=== PATIENT | female | born 1950 | race Caucasian/White ===

== ENCOUNTER 2024-07-09 04:52 | Inpatient (IN) | payer MEDICARE, OTHER, SELFPAY ==
[2024-07-04 12:12] VITALS: BMI 29.7
[2024-07-04 13:08] LABS: Urine Albumin Negative (Neg - Trace); Urine Bilirubin Negative (Negative); Urine Character Clear (Clear); Urine Color Yellow; Urine Glucose Negative (Negative); Urine Ketone Trace (Negative); Urine Leukocyte Negative (Negative); Urine Nitrite Negative (Negative); Urine Occult Blood Negative (Negative); Urine Specific Gravity 1.015 (<1.030); Urine Urobilinogen Negative (Neg - 1+)
[2024-07-04 13:12] LABS: % Basophils 0.6 % (0-2); % Eosinophils 3.1 % (0-6); % Immature Granulocytes 0.3 % (0-0.5); % Lymphocytes 33.9 % (20.5-51.1); % Monocytes 7.8 % (1.7-9.3); % Neutrophils 54.3 % (42.2-75.2); Absolute Eosinophils 0.1 10^3/uL (0-0.7); Absolute Lymphocytes 1.2 10^3/uL (1.2-3.4); Absolute Monocytes 0.3 10^3/uL (0.1-0.6); Hematocrit 34.3 % (37.0-47.0); Mean Corpuscular Hgb 32.4 pg (27.0-31.0); Mean Corpuscular Volume 92.7 fL (81.0-99.0); Nucleated Red Blood Cells % 0 %; Platelet Count 267 10^3/uL (130-400); Red Cell Dist. Width 13.4 % (11.5-14.5); White Blood Cell Count 3.6 10^3/uL (4.8-10.8)
[2024-07-04 13:16] LABS: INR 0.98; PT 13.3 Sec (11.4-14.6)
[2024-07-04 13:17] LABS: APTT 28.1 Sec (23.4-35.0)
[2024-07-04 13:51] LABS: ALT (SGPT) 29 U/L (0-35); AST (SGOT) 25 U/L (14-36); Albumin 4.7 g/dl (3.5-5.0); Alkaline Phosphatase 58 U/L (38-126); Blood Urea Nitrogen 20 mg/dl (7-17); Calcium 9.9 mg/dl (8.4-10.2); Carbon Dioxide 27 mmol/L (22-30); Chloride 98 mmol/L (98-107); Estimated Creatinine Clearance 65 ml/min; Glucose 152 mg/dl (70-99); Potassium 4.7 mmol/L (3.5-5.1); Sodium 137 mmol/L (135-145); Total Bilirubin 0.5 mg/dl (0.2-1.3); Total Protein 7.1 g/dl (6.3-8.2); eGFR > 60.00
[2024-07-04 14:31] LABS: Glycohemoglobin (HgbA1c) 7.2 % (4.0-5.6)
--- NOTE | 2024-07-04 15:59 | CM ---
Met sharad Vallejo and Mrs. Connolly in [facility] She states prior to admission she resides with her spouse in a two story home with one step to enter. She states she has a full flight of steps to get to bedroom/ full bathroom. She state s she has a powder
room on the first floor. She states she has a powder room on the first floor. She states prior to admission she was independent with ambulation and adls. She states she does not have any DME in the home. She states she has a prescription plan.
The discharge plan is to return home with his spouse and VNA services when medically stable.
We reviewed pre-op and post-op routines. We reviewed the shower instructions. She has the soap, written instructions and the Cardiothoracic Surgery Educational Booklet. We also reviewed restrictions including driving and sternal precautions. We
also reviewed a home visit by the Transitional Care Nurse. She is agreeable to a home visit. Will need to see if she is in their catchment area for the Transitional Care Nurse. If out of the area will set-up VNA Services. The plan is for Robotic
MID-CAB verses Sternotomy CABG on Sunday07/09/24.
[2024-07-09] VITALS (15 sets, daily range): BP systolic 101–137; BP diastolic 59–88; BMI 28.8
[2024-07-09] MEDS: LOPRESSOR 25 MG PO (05:35)
[2024-07-09] MEDS: PROTONIX 40 MG PO (05:36)
[2024-07-09] MEDS: MAGNESIUM OXIDE 500 MG PO (05:36)
[2024-07-09] MEDS: BACTROBAN 2% OINTMENT 1 APPLIC NASAL ×2 (05:36→20:12)
--- NOTE | 2024-07-09 06:14 | W.CVOR.SURPR ---
CVOR Surgeon Immed Pre Op
-
I have examined this patient prior to performance of the scheduled procedure.
The patient's condition is unchanged from the time of the dictated/written History and
Physical and the patient is able to undergo the scheduled procedure.
Robotic assisted MIDCAB ZAMBRANO-LAD
[2024-07-09 07:35] LABS: Urine Albumin Negative (Neg - Trace); Urine Bilirubin Negative (Negative); Urine Character Clear (Clear); Urine Color Yellow; Urine Glucose Negative (Negative); Urine Ketone Negative (Negative); Urine Leukocyte Negative (Negative); Urine Nitrite Negative (Negative); Urine Occult Blood Negative (Negative); Urine Urobilinogen Negative (Neg - 1+)
[2024-07-09 07:40] LABS: ACT+ - POC 101 Seconds (82-134)
[2024-07-09 09:39] LABS: ACT+ - POC 428 Seconds (82-134)
--- NOTE | 2024-07-09 10:29 | W.PN.CT.SURG ---
CT Surgery Operative Note
-
CARDIAC SURGERY OPERATIVE REPORT
Preoperative Diagnosis: Coronary Artery Disease with proximal LAD involvement and chest pain
Postoperative Diagnosis: Same
Procedure(s) Performed:
1. Robotic assisted MIDCAB (single-vessel bypass ZAMBRANO in situ to LAD)
2. Robotic assisted harvest of internal mammary artery with anterolateral mini thoracotomy for CABG
3. Transesophageal echocardiography
4. Transonic Flowprobe assessment of ZAMBRANO graft
Date of Surgery: 04/08/2025
Comorbidities:
1. Coronary artery disease involving the proximal LAD
2. Intolerant of Plavix, significant epistaxis
3. Hypertension
4. Hyperlipidemia
5. Diabetes mellitus
6. Neuropathy
7. Cervical cancer status post total abdominal hysterectomy
8. Left breast cancer status post reconstruction with right TRAM flap
9. Cataracts
10. History of [place]
11. Ischemic cardiomyopathy with LVEF of 45% and regional wall motion abnormality
Attending Surgeon: Kris Cabrera MD, MS
Assistants: Collin Osuna PA-C & Marce Carter PA-C (present and necessary to first press operator, exchanging robotic instruments, retraction, suction, exposure, suture management, and wound closure under my direction)
Anesthesiology: David Peña MD and Chuy Ansari CRNA
Scrub and Circulating RNs: Yohana Webber RN, Mary Heredia RN
Peoplesoft Programmer: Corey Schaffer CCP
Anesthesia: GETA
EBL: per perfusion records, 150cc
Products: None
Indication(s) for Procedures: This is a 74-year-old female who is having exertional angina with high-grade stenosis of the proximal mid LAD. She was on Plavix at 1 point and had significant hemoptysis requiring multiple units of PRBCs. Given this,
she was referred to me for consideration of bypass grafting given her intolerant of DAPT. Complicating factor included a TRAM flap which ultimately turned out to be a right TRAM flap relocated to the left breast allowing for use of the ZAMBRANO. The
STS risk was discussed with the patient in the office and the shared decision making was to pursue a single-vessel bypass using his mammary artery to his LAD via a mini invasive approach.
Conduit(s) Quality/Internal Diameter:
ZAMBRANO -excellent, partial pedicle, flow probe analysis, 30 cc/min, PI of 2.9
Target(s) Quality/Internal Diameter:
LAD -good, smaller size target was taken after the second large diagonal vessel in order to clear both tandem lesions
Findings: Her left ventricular ejection fraction preoperatively was mildly depressed at 45 to 50%, following surgery EF remained the same with no new significant regional wall motion abnormalities. There were no new regional wall motion
abnormalities at the conclusion of the case. The ZAMBRANO was harvested in a skeletonized fashion. The mammary graft was verified with Doppler probe to have excellent signals and flows on flow probe assessment.
Description of Procedure: The patient was taken to the operating room. Their identity and procedure to be performed were verified and they were positioned supine on the operating table. Induction via general anesthesia with endotracheal intubation
was performed and central venous access and arterial monitoring were inserted. A preoperative transesophageal echocardiogram was performed to assess cardiac function and valvular function. The patient was then prepped and draped from chin to feet in
a sterile fashion and positioned with left side bumped up and left arm down. A preoperative time-out was performed with all members of the team present. A Veress needle was used to enter the chest after stopping ventilation with the left lung
verified by anesthesia. We started with slow pressure insufflation which they tolerated. An 8 mm port was inserted in the fourth intercostal space laterally and a camera was inserted verifying no intrathoracic iatrogenic injuries. 2 additional
ports(8 mm and 8mm) were placed along the midaxillary line on either side of the camera port. Single 12 mm air seal port was used for the customer assistant to pass instruments and sutures. The robotic platform was then docked and targeted towards the
mammary. The mammary was harvested in a skeletonized fashion. A posterior pericardiotomy was created to facilitate drainage. Once sufficient length was obtained, an anterior pericardiotomy was created to identify the distal target. This was marked
with a marker robotically. The cardiac stabilizer arm was then inserted through one of the robotic ports under direct vision and aimed up towards the anterior chest wall. Full heparinization was given. 3 Hem-o-juan clips were used to occlude and
divide the mammary distally at its bifurcation, and a single 5-0 prolene suture was used to secure the mammary to the pericardium overlying the LAD target. The robot platform was then undocked and the patient and a left anterior thoracotomy was
created over the target vessel. Upon entering the thoracic cavity the mammary and LAD were visible. A soft tissue and thoracotomy retractor was placed to facilitate exposure and a pericardial well was created. The ACT was confirmed to be over 400.
The cardiac suction stabilizer was used to isolate the LAD target. The distal end of the mammary was prepped and beveled to size. We verified orientation and length of the BRODERICK and found brisk flow. A coronary arteriotomy was created and enlarged
with coronary bourgeois scissors. A 1.5mm shunt was inserted to facilitate exposure and continued [place] coronary perfusion. An eege-uw-yhdj anastomosis was created with a 7-0 prolene and secured with a micro core knot. Additional medium clip was
placed the distal end of the mammary. The bulldog on the mammary was removed which demonstrated excellent graft flow. The shunt was then remove and demonstrated excellent [place] flow. Appropriate hemostasis was confirmed. The mammary graft was
inspected and was free from kinking or twisting and flowprobe evaluation demonstrated good flow and PI. A test dose of protamine was administered and the patient was monitored for any adverse reaction before resuming protamine. A 19F asya drain
into the pericardium and through the posterior pericardiotomy into the left chest. A #2 Ethibond suture was used to approximate the rib space. Fascia was approximated with #1 vicryl suture. Local analgesia was administered to the surgical sites.
The subcutaneous, dermis and epidermis were closed in layers in a running fashion. The skin wound was cleansed and dressed.
All instrument, sponge, and needle counts were confirmed to be correct x 2 at the end of the operation. The patient was transferred to the cardiac intensive care unit extubated in critical but stable condition.
I, Dr. Kris Cabrera, was present, scrubbed for, and performed all critical elements of this procedure.
Kris Cabrera MD, MS
Cardiothoracic Surgeon
[facility]
This operative dictation was created using the [email or web address] dictation system. Please excuse any grammatical, typographical, or 'sound alike' errors
[2024-07-09 10:32] LABS: ACT+ - POC 96 Seconds (82-134)
--- NOTE | 2024-07-09 10:39 | CON.INTV ---
Consultation
Consultation Request
Date/Time Consultation Requested: 07/09/2024 - 1020
Date/Time Consultation Performed: 07/09/2024 - 1035
Requesting Provider: DEMETRICE Branch
Performing Provider: Dr. Garcia
Reason for Consultation: s/p MIDCAB
Medical History
-
Chief Complaint: Elective MIDCAB
History of Present Illness:
74-year-old female non-smoker with a past medical history of CVA, MS, hypertension, hyperlipidemia, DM type II, left-sided breast cancer s/p mastectomy with tram flap reconstruction, neuropathy, history of snoring, and history of cervical cancer s/p
RICK with reoccurrence s/p XRT who presents with elective MIDCAB. Patient known to cardiothoracic surgery with Dr. Cabrera, last office visit on 07/01/2024. She has a history of NSTEMI with left heart catheterization recently showing severe mid LAD
stenosis. She was recommended for cardiothoracic revascularization and the risks and benefits were discussed. She agreed to the procedure and today underwent robotic assisted MIDCAB. There were no complications and she was transferred to the
CVICU with a mediastinal chest tubes x 1. Of note, she was extubated in the OR.
When I saw the patient she was resting in no acute distress on a simple mask at 15 L/min saturating 98%, heart rate 83, BP via A-line: 122/45, BP via NIBP: 106/60. Mediastinal chest tube x [address] Currently on insulin at 4 units/hr and Cardene
drip at 2.5 mg/hr.
PMHx: History of MS, history of CVA, history of epistaxis, hypertension, hyperlipidemia, DM type II, history of left-sided breast cancer s/p mastectomy with tram flap reconstruction, neuropathy, history of snoring, cervical cancer s/p RICK with
reoccurrence s/p XRT, urinary frequency, cataracts
PSHx: RICK, left mastectomy, x 2
Past Medical History
Past Medical History: Other (Above as per HPI)
Past Surgical History: Other (Above as per HPI)
Social History
Tobacco: Non-smoker
Alcohol: None
Drug: None
Personal:
Living: With Family
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
Family History
Family History: CAD (Father: from heart attack), Cancer (Mother: Right-sided breast cancer; sibling: Skin cancer) and Other (Sibling: A-fib)
Allergies / Home Medications
Allergies
Allergy/AdvReac Type Severity Reaction Status Date / Time
adhesive Allergy sensitivity Verified 07/02/24 13:21
lidocaine Allergy tachycardia Verified 07/02/24 15:42
Home Medications
�Medication �Instructions �Recorded �Confirmed �Last Taken �Type
aspirin 325 mg tablet 325 mg PO HS 07/02/24 07/09/24 07/08/24 22:00 History
aspirin 81 mg capsule 81 mg PO DAILY 07/02/24 07/09/24 07/08/24 08:00 History
cholecalciferol (vitamin D3) 125 125 mcg PO DAILY 07/02/24 07/09/24 07/02/24 08:00 History
mcg (5,000 unit) tablet (Vitamin
D3)
lisinopril 5 mg tablet 5 mg PO DAILY 07/02/24 07/09/24 07/05/24 08:00 History
metoprolol succinate 25 mg 25 mg PO DAILY 07/02/24 07/09/24 07/05/24 08:00 History
tablet,extended release 24 hr
rosuvastatin 20 mg tablet 20 mg PO HS 07/02/24 07/09/24 07/05/24 08:00 History
vitamin B complex 1 cap PO DAILY 07/02/24 07/09/24 07/02/24 08:00 History
Review of Systems
-
Unable to Obtain full review of systems at this time due to: Acuity
Vitals / Labs / Diagnostic Testing
Vital Signs
Temp Pulse Resp Pulse Ox
98 F 102 16 100
07/09/24 05:42 07/09/24 05:42 07/09/24 05:42 07/09/24 05:42
Diagnostic Testing:
Physical Exam
-
HEENT: Normocephalic and Anicteric
Cardiovascular: S1/S2 and Peripheral Edema (negative)
Respiratory: Wheeze (negative), Rales (negative), Rhonchi (negative) and Non-Labored Respirations
GI: Soft, Non Distended, Non Tender and Normal Bowel Sounds
Neurology: Tremors (negative) and Other (Sedated)
Skin: Warm and Dry
General: Respiratory Distress (negative), Comfortable, Fever (negative) and Chills (negative)
Assessment
-
Assessment: 74-year-old female non-smoker with a past medical history of CVA, MS, hypertension, hyperlipidemia, DM type II, left-sided breast cancer s/p mastectomy with tram flap reconstruction, neuropathy, history of snoring, and history of
cervical cancer s/p RICK with reoccurrence s/p XRT who presents with elective MIDCAB. Patient known to cardiothoracic surgery with Dr. Cabrera, last office visit on 07/01/2024. She has a history of NSTEMI with left heart catheterization recently
showing severe mid LAD stenosis. She was recommended for cardiothoracic revascularization and the risks and benefits were discussed. She agreed to the procedure and today underwent robotic assisted MIDCAB. There were no complications and she was
transferred to the CVICU with a mediastinal chest tubes x 1. Of note, she was extubated in the OR.
Chronic conditions REGISTERED REPRESENTATIVE: History of MS, history of CVA, history of epistaxis, hypertension, hyperlipidemia, DM type II, history of left-sided breast cancer s/p mastectomy with tram flap reconstruction, neuropathy, history of snoring, cervical cancer
s/p RICK with reoccurrence s/p XRT, urinary frequency, cataracts
Impression:
#CAD with proximal LAD involvement and chest pain s/p robotic assisted MIDCAB (POD #0)
#Mild respiratory acidosis
#DM type II with neuropathy c/b mild hyperglycemia
#Acute anemia due to above
#History of epistaxis due to Plavix
#Hypertension
#Hyperlipidemia
#Cervical cancer s/p RICK with recurrence s/p XRT
#Ischemic cardiopathy with chronic HFmrEF
Plan:
Patient was extubated in the OR, currently on 15 L via simple mask and saturating 98% and breathing comfortably
Transition to nasal cannula and maintain SpO2 >90-94%
prn nebulized bronchodilators - not currently bronchospastic
Pressors/antihypertensive/inotropes/diuretics will be provided as needed
Maintain MAP>65
Replete electrolytes with K>4, Mg>2
Monitor chest tube output (mediastinal chest tube x 1)
Monitor hemoglobin
Monitor platelet count and coags
Transfuse blood products as needed to maintain Hb>7g/dL, plt>50k (given post-operative status)
CT surgery managing chest tubes
Monitor blood sugar to maintain euglycemia with goal BG 140-180
Insulin drip per protocol
Aspiration precautions
DVT prophylaxis
Early nutrition
Early mobilization
Critical care statement: A total of 41 minutes of critical care time was provided for this patient today. This includes management of ventilator, spontaneous breathing trial, arterial blood gases, pressors, of unstable vital signs, evaluation of the
patient at bedside, reviewing the patient's pertinent medical records including radiographs, microbiology, laboratory evaluations, and discussion with primary team and critical care nursing.
[2024-07-09 11:11] LABS: B.E. - POC 0.8 mmol/L; Glucose - POC 139 mg/dl (70-99); HCO3 - POC 26 mmol/L (21-28); Hematocrit - POC 27 % PCV (37-47); Hemodilution- POC No; Hemoglobin Calculated - POC 9.3; Ionized Calcium - POC 1.24 mmol/L (1.15-1.33); O2 Saturation %Calculated-POC 99.9 % (94-98); PCO2 - POC 45 mmHg (35-48); PO2 - POC 311 mmHg (83-108); POC Comment BASELINE; Potassium - POC 3.2 mmol/L (3.5-5.1); Sodium - POC 139 mmol/L (136-145); Specimen Type - POC Arterial; pH - POC 7.37 (7.35-7.45)
[2024-07-09 11:11] LABS: B.E. - POC 0.1 mmol/L; Glucose - POC 204 mg/dl (70-99); HCO3 - POC 26 mmol/L (21-28); Hematocrit - POC 31 % PCV (37-47); Hemodilution- POC No; Hemoglobin Calculated - POC 10.5; Ionized Calcium - POC 1.23 mmol/L (1.15-1.33); O2 Saturation %Calculated-POC 98.8 % (94-98); PCO2 - POC 48 mmHg (35-48); PO2 - POC 134 mmHg (83-108); Potassium - POC 3.5 mmol/L (3.5-5.1); Sodium - POC 142 mmol/L (136-145); Specimen Type - POC Arterial; pH - POC 7.34 (7.35-7.45)
--- NOTE | 2024-07-09 11:20 | W.PN.UPDATE ---
Addendum entered and electronically signed by DEMETRICE Branch 07/09/24 15:32:
Patient with history of severe epistaxis with Plavix in the past. Will discontinue Plavix moving forward.
Original Note:
Update Note
Progress Note Update
74-year-old female with a non-STEMI event in April 2024 due to severe mid LAD disease. Patient was electively admitted on 03/09/2025 for mid CAB
IV: 1000
U.O.:� 500
Blood:� none
Wires:� none
Inotropes:� none
Pressors:� none
Sedatives:� none
�
NEURO: Extubated in the OR, sedated , pupils +2mm B/L
RESP: Lungs clear B/L. 2 mediastinal (40cc on arrival) chest tubes to -20cm suction. Sanguineous drainage
CV: RRR +S1, S2, no S3, no�rub, no murmur. Dermabond to left anterior minithoracotomy. RIJ intact. Left mastectomy s/p TRAM flap-skin pink w/o duskiness
ABD: round, soft, no BS
EXT: no edema, +2/4 DP pulses B/L, no femoral bruit, right radial A-line intact
: Iglesias with clear yellow urine
�
A/P: POD #0 s/p robotic assisted MIDCAB (ZAMBRANO to LAD)
# CAD
-Will require aspirin, Plavix, statin, and beta-stanislav
�
# acute surgical blood loss anemia-expected
- trend CBC
�
# Hx CVA 04/2024 with mild expressive aphasia
- neuro checks
�
# T2DM (A1C 7.2)
- insulin infusion x 48h
-Transition to moderate scale SSI when off insulin infusion
�
# HTN
- Cardene added to maintain SBP 90-130mmHg
- resume�lisinopril as BP permits
[2024-07-09 11:25] LABS: Glucose - Point of Care 167 mg/dl (70-99)
[2024-07-09 11:34] LABS: B.E. 0 mmol/L; HCO3 26.4 mmol/L (21-28); Ionized Calcium 1.23 mMOL/L (1.15-1.33); O2 Saturation % 97.1 % (94-98); PCO2 50 mmHg (32-35); PO2 113 mmHg (83-108); Potassium 3.1 mMOL/L (3.5-5.1); Sodium 139 mMOL/L (136-145); pH 7.33 (7.35-7.45)
[2024-07-09 11:36] LABS: Hematocrit 30.8 % (37.0-47.0); Hemoglobin 10.5 g/dL (12.0-16.0); Platelet Count 238 10^3/uL (130-400)
[2024-07-09 11:45] LABS: INR 1.25
--- NOTE | 2024-07-09 11:45 | PTCARENOTE ---
pt received from CVOR, drowsy. core temp 95.3F, bear hugger applied. SR on the monitor, HR 70-80s. no epicardial wires. per Dr. Cabrera goal SBP 90-130, Nitro gtt off per HEALTH INFORMATION MANAGEMENT DIRECTOR, started on Cardene gtt. palpable pulses. pt extubated in OR, 15L SM, 97-100%
POX. CTx1, no air leak or crepitus noted. pt abdomen s/n, denies n/v. Iglesias in place, clear yellow urine. 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 CT site c/d/i. R radial Abbie zeroed and calibrated. PIV. insulin
gtt running as ordered. lab work drawn, EKG performed, CXR completed. see worklist for VS, I&O, and assessment.
[2024-07-09] MEDS: NEURONTIN PO (11:46)
[2024-07-09] MEDS: ANCEF 10 IV ×2 (11:46)
[2024-07-09] MEDS: NSS 500 IV (11:47)
[2024-07-09] MEDS: KCL 50 IV ×2 (11:51→12:30)
[2024-07-09 11:56] LABS: Blood Urea Nitrogen 20 mg/dl (7-17); Estimated Creatinine Clearance 74 ml/min; Glucose 157 mg/dl (70-99)
[2024-07-09 12:51] LABS: Glucose - Point of Care 166 mg/dl (70-99)
[2024-07-09 14:16] LABS: Glucose - Point of Care 142 mg/dl (70-99)
[2024-07-09] MEDS: TYLENOL 1000 MG PO ×2 (14:55→23:20)
[2024-07-09 15:19] LABS: Glucose - Point of Care 122 mg/dl (70-99)
--- NOTE | 2024-07-09 15:43 | CM ---
pt in OR today, cm to follow.
[2024-07-09 16:14] LABS: Glucose - Point of Care 103 mg/dl (70-99)
[2024-07-09] MEDS: TORADOL 15 MG IV (16:31)
[2024-07-09] MEDS: ZOFRAN 4 MG IV (16:32)
[2024-07-09] MEDS: NEURONTIN 100 MG PO ×2 (16:32→23:20)
[2024-07-09] MEDS: PACERONE 200 MG PO ×2 (16:33→22:10)
--- NOTE | 2024-07-09 16:35 | PTCARENOTE ---
pt VSS, oriented x4, at bedside. PRN Toradol IVP given for pain. pt c/o mild nausea, received PRN Zofran. IS 1500ml. tolerating clears.
[2024-07-09] MEDS: LOW STRENGTH ASPIRIN 81 MG PO (17:07)
[2024-07-09] MEDS: ANCEF 5 IV (17:07)
--- NOTE | 2024-07-09 17:18 | W.PN.CD ---
Addendum entered and electronically signed by Latrell Lerner MD 07/09/24 17:41:
74 yo female with PMH of CAD, ICM EF 45% admitted following MIDCAB (ZAMBRANO-LAD). She is awake and extubated. Exam with RRR, no murmurs, no edema. Tele and EKG: sinus rhythm.
Add GDMT as BP allows post op. Continue ASA, statin.
Original Note:
Today's Communication / Plan
-
Follow telemetry
Postoperative care per CT surgery
Impression / Plan
-
IMPRESSION/PLAN: 74F with type 2 diabetes mellitus, hypertension, and dyslipidemia with type II PR in the setting of atheroembolic CVA presents for CABG
Primary lead atg developer: Dr. Bakari Moses
CAD s/p MIDCAB (single-vessel bypass ZAMBRANO in situ to LAD)
-EKG sinus rhythm with prolonged QT, EKG in a.m.
-Telemetry stable
-Extubated in OR
Type II PR (04/2024)
-She had epistaxis with DAPT on aspirin 325 mg at home, she saw ENT in the outpatient setting, she was cleared to resume clopidogrel with some risk
Ischemic cardiomyopathy (EF 45%)
-GDMT as tolerated in the postoperative setting
-Case management to flynn [id number]
-Follow daily weight, I/O
HLD
-Most recent LDL 60, fasting lipid panel in a.m.
-Ideally, LDL should be <55
Hypertension, follow postoperatively
Prior CVA
Type 2 diabetes mellitus, HgbA1c 11.6%, now improved to 7.2%
Prior left-sided breast cancer status post mastectomy and TRAM flap reconstruction
Cervical cancer s/p RICK, recurred XRT
Physical Exam
Vital Signs/Labs
Vital Signs
Temp Pulse Resp BP Pulse Ox
97.8 F 84 11 121/74 99
07/09/24 16:00 07/09/24 16:15 07/09/24 16:15 07/09/24 16:00 07/09/24 16:15
07/08/24 07/09/24 07/10/24
06:59 06:59 06:59
Actual Weight 69.1 kg
07/09/24 11:23
PT 16.0 Sec (11.4-14.6) H 07/09/24 11:23
INR 1.25 07/09/24 11:23
APTT 32.0 Sec (23.4-35.0) 07/09/24 11:23
Magnesium 2.0 mg/dl (1.6-2.3) 07/09/24 11:23
Physical Exam
Constitutional: No acute distress and Comfortable
EENT: Anicteric and Moist mucous membranes
Cardiovascular: Rhythm & rate is regular and S1S2 is normal
Respiratory: Respiratory effort normal and Lungs clear to auscul.
GI: Soft, Distention absent, Flat, Non tender and Normal bowel sounds
Neuro/Psych: AO x 3
Other: Skin (warm and dry)
Data Reviewed
-
Date of Service: July 09, 2024
[2024-07-09 18:21] LABS: Glucose - Point of Care 99 mg/dl (70-99)
[2024-07-09] MEDS: COMPAZINE 10 MG IV (19:58)
--- NOTE | 2024-07-09 20:00 | PTCARENOTE ---
assumed care of pt from previous RN. R IJ cordis w/ SLIC. R radial a-line. all lines leveled, zeroed, flushed. PIV intact. pt A&Ox4, resting in bed s/p mid CABG. SR on tele-monitor. POX 95% on RA. CTx1 (L lateral mediastinal) to -20cm wall suction,
draining sanguineous drainage. pt DTV @ 2330. all surgical sites stable, CDI. see worklist for complete nursing assessment, interventions, VS, and I&Os.
[2024-07-09 20:06] LABS: Glucose - Point of Care 110 mg/dl (70-99)
[2024-07-09] MEDS: DILAUDID 0.25 MG IV (20:12)
[2024-07-09] MEDS: SENOKOT-S PO (20:13)
[2024-07-09 21:23] LABS: Hematocrit 31.1 % (37.0-47.0); Hemoglobin 10.5 g/dL (12.0-16.0); Platelet Count 224 10^3/uL (130-400)
[2024-07-09 22:08] LABS: Glucose - Point of Care 86 mg/dl (70-99)
[2024-07-09] MEDS: CRESTOR 20 MG PO (22:10)
[2024-07-10] VITALS (17 sets, daily range): BP systolic 96–152; BP diastolic 58–81; PULSE 80; O2SAT 96–98; BMI 29.1
--- NOTE | 2024-07-10 | PTCARENOTE ---
assessment remains unchanged. VSS.
[2024-07-10 00:11] LABS: Glucose - Point of Care 98 mg/dl (70-99)
[2024-07-10 01:02] LABS: Glucose - Point of Care 97 mg/dl (70-99)
--- NOTE | 2024-07-10 02:05 | W.PN.CT ---
Today's Communication / Plan
-
-pod #1
-no issues overnight, A&O x4
-drips: Insulin only
-CT output: L med 95/215 in 12/24 hrs
-Kelsie was dcd yesterday. Pt was unable to use purewick, but got up to the commode overnight uneventfully (UO 300)
-continue insulin
-deline
-current meds (Asa, Amio, Lopressor, Crestor, Protonix). Intolerance of Plavix (hx epistaxis requiring transfusions)
-encourage IS, OOB
Assessment / Plan
-
- s/p Robotic assisted MIDCAB (single-vessel bypass ZAMBRANO in situ to LAD) by Dr. Cabrera on 07/09/24, pod #1
- Intraop ELAINE: LVEF preop was mildly depressed at 45 to 50%, following surgery EF remained the same with no new significant regional wall motion abnormalities.
- Coronary artery disease involving the proximal LAD
- Intolerant of Plavix, significant epistaxis requiring multiple units of PRBCs
- Hypertension
- Hyperlipidemia
- Diabetes mellitus
- Neuropathy
- Cervical cancer 2021- status post total abdominal hysterectomy & XRT
- Left breast cancer- status post mastectomy with reconstruction with right TRAM flap
- Cataracts
- History of [place] 04/2024
- Hx CVA 04/2024 (expressive aphasia- resolved)
- Ischemic cardiomyopathy with LVEF of 45% and regional wall motion abnormality
- Urinary frequency/incontinence
- Acute postop blood loss anemia- no active bleed
- Acute postop atelectasis
- Acute postop hypovolemia with subsequent hypervolemia
Discussed patient care with: Nursing and Care Team
Subjective
-
Date of Service: July 10, 2024
Objective Data
-
PT 16.0 Sec (11.4-14.6) H 07/09/24 11:23
INR 1.25 01/22/25 11:23
APTT 32.0 Sec (23.4-35.0) 07/09/24 11:23
Vital Signs
Vital Signs
Temp Pulse Resp BP Pulse Ox
98 F 82 10 112/66 98
07/09/24 20:00 07/10/24 01:00 07/10/24 01:00 07/10/24 01:00 07/10/24 01:00
CT Intake/Output/Weight
07/09/24 07/09/24 07/10/24
06:59 18:59 06:59
Intake Total 319.5 / 485.9 166.4 / 485.9
Output Total 680 / 740 60 / 740
Balance -360.5 / -254.1 106.4 / -254.1
SaO2: 98
Physical Exam
-
General: Awake and AOx3
Cardiovascular: Regular rate & rhythm, No Murmurs and No Rub
Respiratory: Decreased Breath Sounds
Sternum: Stable
Incision: Clean, Dry and Intact
Extremities: Edema +1 (DPs 1+ b/l)
Abdomen: soft, nondistended, nontender, +decreased bowel sounds
Data Reviewed
-
Lab Results: Results Reviewed
Medications: Active Meds Reviewed
Chest X-Ray: Report Reviewed and Image Reviewed
ECG: Report Reviewed and Image Reviewed
[2024-07-10 02:12] LABS: Glucose - Point of Care 89 mg/dl (70-99)
[2024-07-10] MEDS: ANCEF 5 IV ×2 (02:13→09:57)
[2024-07-10 03:04] LABS: Hepatitis C Antibody Negative (Negative)
[2024-07-10 03:20] LABS: Glucose - Point of Care 117 mg/dl (70-99)
[2024-07-10 03:43] LABS: Hemoglobin 10.8 g/dL (12.0-16.0); Mean Corp Hgb Conc. 33.8 g/dL (33.0-37.0); Mean Corpuscular Hgb 31.8 pg (27.0-31.0); Mean Corpuscular Volume 94.1 fL (81.0-99.0); Platelet Count 234 10^3/uL (130-400); Red Cell Dist. Width 13.4 % (11.5-14.5); White Blood Cell Count 7.6 10^3/uL (4.8-10.8)
--- NOTE | 2024-07-10 04:00 | PTCARENOTE ---
no acute changes. VSS. AM labs collected and sent.
[2024-07-10 04:07] LABS: Blood Urea Nitrogen 14 mg/dl (7-17); Calcium 8.3 mg/dl (8.4-10.2); Carbon Dioxide 22 mmol/L (22-30); Chloride 103 mmol/L (98-107); Estimated Creatinine Clearance 74 ml/min; Glucose 113 mg/dl (70-99); HDL Cholesterol 72 mg/dl; LDL Cholesterol, Calculated 50 mg/dl; Potassium 3.6 mmol/L (3.5-5.1); Sodium 137 mmol/L (135-145); Total Cholesterol 135 mg/dl (50-199); Triglyceride 65 mg/dl (10-149); Very Low Density Lipoprotein 13 mg/dl (0-30); eGFR > 60.00
[2024-07-10 04:11] LABS: Glucose - Point of Care 101 mg/dl (70-99)
[2024-07-10 05:59] LABS: Glucose - Point of Care 85 mg/dl (70-99)
[2024-07-10] MEDS: TYLENOL 1000 MG PO ×3 (05:59→22:20)
[2024-07-10] MEDS: KCL 40 MEQ PO (06:25)
[2024-07-10 08:16] LABS: Glucose - Point of Care 96 mg/dl (70-99)
--- NOTE | 2024-07-10 08:22 | W.PN.INTV ---
Today's Communication / Plan
Recommendations
Up OOB as tolerated
Pain control
Encourage incentive spirometer use
Maintain SpO2 >90-94%
Goal BG 140�180 with insulin drip
Pt will continue CVICU status while on insulin drip. Once transitioned off insulin drip then we will sign off at that time. Thank you for allowing us to be involved in the care of this patient, and please call Pulmonary service if there are any
additional questions or concerns.
Assessment
-
Assessment: 74-year-old female non-smoker with a past medical history of CVA, [place], hypertension, hyperlipidemia, DM type II, left-sided breast cancer s/p mastectomy with tram flap reconstruction, neuropathy, history of snoring, and history of
cervical cancer s/p RICK with reoccurrence s/p XRT who presents with elective MIDCAB. Patient known to cardiothoracic surgery with Dr. Cabrera, last office visit on 07/01/2024. She has a history of NSTEMI with left heart catheterization recently
showing severe mid LAD stenosis. She was recommended for cardiothoracic revascularization and the risks and benefits were discussed. She agreed to the procedure and today underwent robotic assisted MIDCAB. There were no complications and she was
transferred to the CVICU with a mediastinal chest tubes x 1. Of note, she was extubated in the OR.
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
s/p RICK with reoccurrence s/p XRT, urinary frequency, cataracts
Impression:
#CAD with proximal LAD involvement and chest pain s/p robotic assisted MIDCAB (POD #1)
#Mild respiratory acidosis (while still intubated)
#DM type II with neuropathy c/b mild hyperglycemia
#Acute anemia due to above
#History of epistaxis due to Plavix
#Hypertension
#Hyperlipidemia
#Cervical cancer s/p RICK with recurrence s/p XRT
#Ischemic cardiopathy with chronic HFmrEF
Plan:
Patient was extubated in the OR on 07/09/2024, currently on room air and saturating 94% and breathing comfortably
Maintain SpO2 >90-94%
prn nebulized bronchodilators - not currently bronchospastic
Pressors/antihypertensive/inotropes/diuretics will be provided as needed
Maintain MAP>65
Replete electrolytes with K>4, Mg>2
Mediastinal chest tube now removed
Monitor hemoglobin
Monitor platelet count and coags
Transfuse blood products as needed to maintain Hb>7g/dL, plt>50k (given post-operative status)
Monitor blood sugar to maintain euglycemia with goal BG 140-180
Insulin drip per protocol
Aspiration precautions
DVT prophylaxis
Early nutrition
Early mobilization
Pt will continue CVICU status while on insulin drip. Once transitioned off insulin drip then we will sign off at that time. Thank you for allowing us to be involved in the care of this patient, and please call Pulmonary service if there are any
additional questions or concerns.
Critical care statement: A total of 37 minutes of critical care time was provided for this patient today. This includes management of ventilator, spontaneous breathing trial, arterial blood gases, pressors, of unstable vital signs, evaluation of the
patient at bedside, reviewing the patient's pertinent medical records including radiographs, microbiology, laboratory evaluations, and discussion with primary team and critical care nursing.
Subjective Dataa
Subjective Data
Date of Service:
Date of Service: July 10, 2024
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
Subjective:
Patient seen and evaluated today at bedside. Currently on insulin drip at 1.2 units/h. Pulling 1500 cc from incentive spirometer. Heart rate 78 and saturating 94% on room air. She feels well, denying SOB, BRIGGS, nausea, vomiting, fevers or chills.
Mediastinal chest tube removed today.
Review of Systems
General: Other (Negative unless mentioned above)
Objective Data
Data Reviewed
Vital Signs / I&O / Oxygen:
Vital Signs
Temp Pulse Resp BP Pulse Ox
98 F 88 15 114/63 96
07/09/24 20:00 07/10/24 06:15 07/10/24 06:15 07/10/24 06:00 07/10/24 06:00
Intake and Output
07/09/24 07/10/24 07/11/24
06:59 06:59 06:59
Intake Total 579.1 / 579.1
Output Total 1250 / 1250
Balance -670.9 / -670.9
SaO2 96
Nasal Cannula flow liters per 1
minute
Physical Exam
General: Respiratory Distress (negative), Comfortable, Chills (negative) and Sweats (negative)
HEENT: Normocephalic and Anicteric
Cardiovascular: S1-S2 and Peripheral Edema (Trace lower extremity edema bilaterally)
Respiratory: Clear, Wheeze (negative), Crackles (negative), Rhonchi (negative), Non-Labored Respirations and Stridor (negative)
GI: Soft, Non Distended, Non Tender and Normal Bowel Sounds
Neurology: AO x 3 and Tremors (negative)
Skin: Warm, Dry, Cyanosis (negative) and Jaundice (negative)
Labs/Micro/Reports
Lab Data
07/10/24 03:16
07/10/24 03:16
Laboratory Results
07/09/24
11:23
PT 16.0 H
INR 1.25
APTT 32.0
pH 7.33 L
pCO2 50 H
pO2 113 H
HCO3 26.4
O2 Delivery Level
--- NOTE | 2024-07-10 08:56 | W.PN.CD ---
Today's Communication / Plan
-
doing well; cont. post op care dictated by CTS; no perceived barrier to dischage as planned tomorrow
Impression / Plan
-
IMPRESSION/PLAN: 74F with type 2 diabetes mellitus, hypertension, and dyslipidemia with type II [place] in the setting of atheroembolic CVA presents for CABG
Primary seafood technology specialist: Dr. Bakari Moses
CAD s/p MIDCAB (single-vessel bypass ZAMBRANO in situ to LAD)
-EKG sinus rhythm, PVC, non-specific TW abnormality, mildly prolonged qTC,
-Telemetry stable
-Extubated in OR
-plan for chest tubes out today
-plan for home tomorrow
Type II [place] (04/2024)
-She had epistaxis with DAPT on aspirin 325 mg at home, she saw ENT in the outpatient setting, she was cleared to resume clopidogrel with some risk
Ischemic cardiomyopathy (EF 45%)
-GDMT as tolerated in the postoperative setting
-Case management to flynn [id number]
-Follow daily weight, I/O
HLD
-Most recent LDL 60, fasting lipid panel in a.m.
-Ideally, LDL should be <55
Hypertension, follow postoperatively
Prior CVA
Type 2 diabetes mellitus, HgbA1c 11.6%, now improved to 7.2%
Prior left-sided breast cancer status post mastectomy and TRAM flap reconstruction
Cervical cancer s/p RICK, recurred XRT
Physical Exam
Vital Signs/Labs
Vital Signs
Temp Pulse Resp BP Pulse Ox
36.6 C 88 15 114/63 96
07/09/24 20:00 07/10/24 06:15 07/10/24 06:15 07/10/24 06:00 07/10/24 06:00
07/09/24 07/10/24 07/11/24
06:59 06:59 06:59
Actual Weight 69.1 kg 69.8 kg
07/10/24 03:16
07/10/24 03:16
PT 16.0 Sec (11.4-14.6) H 07/09/24 11:23
INR 1.25 07/09/24 11:23
APTT 32.0 Sec (23.4-35.0) 07/09/24 11:23
Magnesium 2.0 mg/dl (1.6-2.3) 07/10/24 03:16
Triglycerides 65 mg/dl (10-149) 07/10/24 03:16
LDL Cholesterol, Calc 50 mg/dl 07/10/24 03:16
VLDL Cholesterol, Calc 13 mg/dl (0-30) 07/10/24 03:16
HDL Cholesterol 72 mg/dl 07/10/24 03:16
Physical Exam
Constitutional: No acute distress
Cardiovascular: Rhythm & rate is regular
Respiratory: Respiratory effort normal
Neuro/Psych: AO x 3
Data Reviewed
-
Date of Service: July 10, 2024
Medical Decision Making: Reviewed Test Results
EKG: Tracing Personally Visualized and interpreted
Labs: Labs Reviewed by me
[2024-07-10] MEDS: PACERONE 200 MG PO ×3 (09:02→22:19)
[2024-07-10] MEDS: NEURONTIN 100 MG PO ×3 (09:02→22:20)
[2024-07-10] MEDS: MAGNESIUM OXIDE 500 MG PO ×2 (09:02→20:08)
[2024-07-10] MEDS: PROTONIX 40 MG PO (09:02)
[2024-07-10] MEDS: LOPRESSOR 12.5 MG PO (09:02)
[2024-07-10] MEDS: LIDOCAINE 4% PATCH 1 PATCH TOPICAL (09:03)
[2024-07-10] MEDS: SENOKOT-S 1 TABLET PO ×2 (09:03→20:09)
[2024-07-10] MEDS: BACTROBAN 2% OINTMENT 1 APPLIC NASAL ×2 (09:03→20:08)
[2024-07-10] MEDS: LOW STRENGTH ASPIRIN 81 MG PO (09:03)
[2024-07-10] MEDS: FARXIGA 10 MG PO (09:57)
[2024-07-10] MEDS: TOPROL XL 12.5 MG PO ×2 (09:57→21:11)
--- NOTE | 2024-07-10 10:19 | W.PN.ANS.POP ---
Anesthesia Post Operative
- Anesthesia Post Op Note
Vital Signs Stable-See Nursing Note: Yes
Airway Patent: Yes
Adequate Pain Control: Yes
Change in Mental Status: No
Current Postoperative Nausea & Vomiting: No
Anesthesia Complications: No
General Anesthetic Recall: No
Unplanned Admission: No
Post Op Hydration Adequate: Yes
--- NOTE | 2024-07-10 10:41 | PTCARENOTE ---
assumed care of pt from previous shift RN, sinus rhythm on tele HR 80's, VSS, + peripheral pulses, no edema. Lungs diminished, pox 98% on RA. +bs, tolerating PO intake, voids spontaneously. Mediastinal CT discontinued by CT SOFYA. Surgical sites
stable. Right IJ cordis w KVO and insulin infusing. PIV flushes easily. Plan of care reviewed w the pt and questions encouraged.
[2024-07-10 11:33] LABS: Glucose - Point of Care 176 mg/dl (70-99)
[2024-07-10] MEDS: NSS IV (11:41)
--- NOTE | 2024-07-10 12:00 | PTCARENOTE ---
VSS, sinus rhythm maintained on tele. pain well controlled. surgical sites stable.
[2024-07-10 13:33] LABS: Glucose - Point of Care 117 mg/dl (70-99)
[2024-07-10] MEDS: FERRLECIT 110 MG IV (13:33)
--- NOTE | 2024-07-10 15:34 | CM ---
Chart reviewed. Patient is independent of ADLS, lives with her in a 2 [address], 1 SANDRO, 0 DME. Plan is for the patient to return home with CT Transitional RN. CM to follow
--- NOTE | 2024-07-10 15:35 | CM ---
Pricing on Farxiga 10 mg is $560. Patient has a $590 deductible she needs to meet first and then it will cost her, her Tier 3 level cost.
Jardiance is $587. Patient has a $590 deductible she needs to meet first and then it will cost her, her Tier 3 level cost.
Entresto is $ 606. Patient has a $590 deductible she needs to meet first and then it will cost her, her Tier 3 level cost.
Patient is agreeable to cost. I placed free 30 day coupons in the patient's red discharge folder.
[2024-07-10 16:32] LABS: Glucose - Point of Care 115 mg/dl (70-99)
--- NOTE | 2024-07-10 16:57 | PTCARENOTE ---
pt ambulating rincon w family, VSS
[2024-07-10 18:08] LABS: Glucose - Point of Care 88 mg/dl (70-99)
[2024-07-10] MEDS: NOVOLIN R INSULIN INFUSION 100 IV (19:02)
[2024-07-10 19:59] LABS: Glucose - Point of Care 128 mg/dl (70-99)
--- NOTE | 2024-07-10 20:18 | PTCARENOTE ---
Received pt from [facility]. Walking rounds completed. Pt assessment completed in chair. Pt is AAOx4. No neuro deficits noted. PT stated hx of CVA with speech affected. No deficit noted at time of assessment. NSR on monitor. HR 80's, B/P 152/63.
Pulses palpable throughout. trace edema bilateral upper and lower extremities. Lungs clear, slightly diminished in bases. L C/T dressing C/D/I. Normal bowel sounds, abdomen round, soft, non-tender. Pt voiding yellow urine in bathroom. L Breast
Lateral incision PREFORM PLATE MAKER, approx. with surgical glue present. L Lap surg sites (3) PREFORM PLATE MAKER, approx. with surgical glue. Cordis to KVO, 18g R AC intact and flushes. Discussed plan of care with pt. Pt agrees with plan. Will continue to monitor pt needs.
[2024-07-10 22:12] LABS: Glucose - Point of Care 102 mg/dl (70-99)
[2024-07-10] MEDS: CRESTOR 20 MG PO (22:19)
[2024-07-10 23:56] LABS: Glucose - Point of Care 96 mg/dl (70-99)
[2024-07-11] VITALS (8 sets, daily range): BP systolic 119–156; BP diastolic 56–80; PULSE 78; O2SAT 100; BMI 29.2
--- NOTE | 2024-07-11 00:06 | PTCARENOTE ---
VSS. NSR on monitor. HR 63, B/P 129/71. Evening care provided. Pt resting in bed. Will continue to monitor PT needs.
[2024-07-11 02:00] LABS: Glucose - Point of Care 84 mg/dl (70-99)
[2024-07-11 02:24] LABS: Hematocrit 32.6 % (37.0-47.0); Hemoglobin 11.1 g/dL (12.0-16.0); Mean Corpuscular Hgb 31.8 pg (27.0-31.0); Mean Corpuscular Volume 93.4 fL (81.0-99.0); Mean Platelet Volume 10.1 fL (7.4-10.4); Platelet Count 275 10^3/uL (130-400); Red Blood Cell Count 3.49 10^6/uL (4.20-5.40); Red Cell Dist. Width 13.4 % (11.5-14.5)
[2024-07-11 02:37] LABS: Blood Urea Nitrogen 15 mg/dl (7-17); Calcium 9.1 mg/dl (8.4-10.2); Carbon Dioxide 26 mmol/L (22-30); Chloride 100 mmol/L (98-107); Estimated Creatinine Clearance 56 ml/min; Glucose 79 mg/dl (70-99); Magnesium 2.2 mg/dl (1.6-2.3); Potassium 4.4 mmol/L (3.5-5.1); Sodium 135 mmol/L (135-145); eGFR > 60.00
[2024-07-11 03:49] LABS: Glucose - Point of Care 93 mg/dl (70-99)
--- NOTE | 2024-07-11 04:24 | PTCARENOTE ---
VSS, NSR on monitor. HR 65, B/P 119/56. Morning labs obtained and sent. Weight obtained. Am care provided. Pt resting in bed. Will continue to monitor pt needs.
[2024-07-11 05:51] LABS: Glucose - Point of Care 114 mg/dl (70-99)
--- NOTE | 2024-07-11 06:47 | W.PN.CT ---
Today's Communication / Plan
-
-pod #2
-looks and feels well, ambulated in hallways
-no issues overnight
-BB was increased- Toprol 50 qd, started on . Plans to start Entresto 07/11
-UO has been 1750/2250 in 12/24 hrs
-current meds (Asa, Amio, Farxiga, Toprol, Crestor, Protonix). Intolerance of Plavix (hx epistaxis requiring transfusions)
-encourage IS, OOB, ambulate
-possible d/c soon
Assessment / Plan
-
- s/p Robotic assisted MIDCAB (single-vessel bypass ZAMBRANO in situ to LAD) by Dr. Cabrera on 07/09/24, pod #2
- Intraop ELAINE: LVEF preop was mildly depressed at 45 to 50%, following surgery EF remained the same with no new significant regional wall motion abnormalities.
- Coronary artery disease involving the proximal LAD
- Intolerant of Plavix, significant epistaxis requiring multiple units of PRBCs
- Hypertension
- Hyperlipidemia
- Diabetes mellitus
- Neuropathy
- Cervical cancer 2021- status post total abdominal hysterectomy & XRT
- Left breast cancer- status post mastectomy with reconstruction with right TRAM flap
- Cataracts
- History of [place] 04/2024
- Hx CVA 04/2024 (expressive aphasia- resolved)
- Ischemic cardiomyopathy with LVEF of 45% and regional wall motion abnormality
- Urinary frequency/incontinence
- Acute postop blood loss anemia- no active bleed
- Acute postop atelectasis
- Acute postop hypovolemia with subsequent hypervolemia
Discussed patient care with: Nursing and Care Team
Subjective
-
Date of Service: July 11, 2024
Objective Data
-
PT 16.0 Sec (11.4-14.6) H 07/09/24 11:23
INR 1.25 07/09/24 11:23
APTT 32.0 Sec (23.4-35.0) 07/09/24 11:23
Vital Signs
Vital Signs
Temp Pulse Resp BP Pulse Ox
97.9 F 82 16 129/71 99
07/11/24 00:00 07/10/24 23:50 07/11/24 00:00 07/10/24 23:50 07/11/24 00:00
CT Intake/Output/Weight
07/10/24 07/10/24 07/11/24
06:59 18:59 06:59
Intake Total 259.6 / 579.1 55.4 / 120.6 65.2 / 120.6
Output Total 570 / 1250 500 / 1300 800 / 1300
Balance -310.4 / -670.9 -444.6 / -1179.4 -734.8 / -1179.4
SaO2: 99
Physical Exam
-
General: Awake and AOx3
Cardiovascular: Regular rate & rhythm, No Murmurs and No Rub
Respiratory: Clear and Decreased Breath Sounds
Sternum: Stable
Incision: Clean, Dry and Dressing Intact
Extremities: Edema +1
Data Reviewed
-
Lab Results: Results Reviewed
Medications: Active Meds Reviewed
Chest X-Ray: Report Reviewed and Image Reviewed
ECG: Report Reviewed and Image Reviewed
[2024-07-11] MEDS: TYLENOL 1000 MG PO (06:55)
[2024-07-11 08:11] LABS: Glucose - Point of Care 76 mg/dl (70-99)
[2024-07-11] MEDS: TOPROL XL 50 MG PO (08:24)
[2024-07-11] MEDS: NEURONTIN 100 MG PO (08:24)
[2024-07-11] MEDS: MAGNESIUM OXIDE 500 MG PO (08:25)
[2024-07-11] MEDS: SENOKOT-S 1 TABLET PO (08:25)
[2024-07-11] MEDS: PACERONE 200 MG PO (08:25)
[2024-07-11] MEDS: PROTONIX 40 MG PO (08:25)
[2024-07-11] MEDS: LIDOCAINE 4% PATCH TOPICAL (08:26)
[2024-07-11] MEDS: BACTROBAN 2% OINTMENT 1 APPLIC NASAL (08:26)
[2024-07-11] MEDS: LOW STRENGTH ASPIRIN 81 MG PO (08:26)
[2024-07-11] MEDS: NSS IV (08:27)
--- NOTE | 2024-07-11 08:31 | W.PN.INTV ---
Today's Communication / Plan
Recommendations
Up OOB as tolerated
Pain control
Encourage incentive spirometer use
Maintain SpO2 >90-94%
Goal BG 140�180
Patient has been weaned off the insulin drip and is being prepared for discharge home. No additional recommendations at this time. [employer]/Pulmonary service will now sign off. Please reconsult if there are any additional questions/concerns,
or if patient's respiratory status deteriorates.
Assessment
-
Assessment: 74-year-old female non-smoker with a past medical history of CVA, [place], hypertension, hyperlipidemia, DM type II, left-sided breast cancer s/p mastectomy with tram flap reconstruction, neuropathy, history of snoring, and history of
cervical cancer s/p RICK with reoccurrence s/p XRT who presents with elective MIDCAB. Patient known to cardiothoracic surgery with Dr. Cabrera, last office visit on 07/01/2024. She has a history of NSTEMI with left heart catheterization recently
showing severe mid LAD stenosis. She was recommended for cardiothoracic revascularization and the risks and benefits were discussed. She agreed to the procedure and today underwent robotic assisted MIDCAB. There were no complications and she was
transferred to the CVICU with a mediastinal chest tubes x 1. Of note, she was extubated in the OR.
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
s/p RICK with reoccurrence s/p XRT, urinary frequency, cataracts
Impression:
#CAD with proximal LAD involvement and chest pain s/p robotic assisted MIDCAB (POD #2)
#DM type II with neuropathy c/b mild hyperglycemia
#Acute anemia due to above
#History of epistaxis due to Plavix
#Hypertension
#Hyperlipidemia
#Cervical cancer s/p RICK with recurrence s/p XRT
#Ischemic cardiopathy with chronic HFmrEF
Plan:
Patient was extubated in the OR on 07/09/2024, currently on room air and saturating 97% and breathing comfortably
Maintain SpO2 >90-94%
prn nebulized bronchodilators - not currently bronchospastic
Pressors/antihypertensive/inotropes/diuretics will be provided as needed
Maintain MAP>65
Replete electrolytes with K>4, Mg>2
Mediastinal chest tube removed yesterday
Monitor hemoglobin
Monitor platelet count and coags
Transfuse blood products as needed to maintain Hb>7g/dL, plt>50k (given post-operative status)
Monitor blood sugar to maintain euglycemia with goal BG 140-180
Insulin drip weaned off
Aspiration precautions
DVT prophylaxis
Early nutrition
Early mobilization
Patient being prepared for discharge home. No additional recommendations at this time. [employer]/Pulmonary service will now sign off. Thank you for allowing us to be involved in the care of this patient. Please reconsult if there are any
additional questions/concerns, or if patient's respiratory status deteriorates.
Total time spent today was 41 minutes for this encounter. Time includes reviewing laboratory test/imaging results, reviewing pertinent medical records, obtaining and reviewing medical history, performing an appropriate exam, ordering medications,
tests and procedures. Time also includes documentation of this encounter, coordinating patient care and communicating with other healthcare professionals. Total time does not include separately billed tests performed on this date of service.
Subjective Dataa
Subjective Data
Date of Service:
Date of Service: July 11, 2024
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
Subjective:
Patient seen and evaluated today at bedside. Patient feels well. She is being prepared for discharge home today. No acute events reported from overnight. Currently denies BRIGGS, chest pain, SOB, fevers or chills.
Review of Systems
General: Other (Negative unless mentioned above)
Objective Data
Data Reviewed
Vital Signs / I&O / Oxygen:
Vital Signs
Temp Pulse Resp BP Pulse Ox
98.5 F 66 18 119/56 100
07/11/24 02:00 07/11/24 05:00 07/11/24 06:00 07/11/24 03:53 07/11/24 06:00
Intake and Output
07/10/24 07/11/24 07/12/24
06:59 06:59 06:59
Intake Total 579.1 / 579.1 183.5 / 183.5
Output Total 1250 / 1250 2250 / 2250
Balance -670.9 / -670.9 -2066.5 / -2066.5
SaO2 100
Nasal Cannula flow liters per 1
minute
Physical Exam
General: Respiratory Distress (negative), Comfortable, Chills (negative) and Sweats (negative)
HEENT: Normocephalic and Anicteric
Cardiovascular: S1-S2 and Peripheral Edema (Trace lower extremity edema bilaterally)
Respiratory: Clear, Wheeze (negative), Crackles (negative), Rhonchi (negative), Non-Labored Respirations and Stridor (negative)
GI: Soft, Non Distended, Non Tender and Normal Bowel Sounds
Neurology: AO x 3 and Tremors (negative)
Skin: Warm, Dry, Cyanosis (negative) and Jaundice (negative)
Labs/Micro/Reports
Lab Data
07/11/24 02:15
07/11/24 02:15
[2024-07-11] MEDS: FARXIGA 10 MG PO (09:16)
--- NOTE | 2024-07-11 09:47 | PTCARENOTE ---
assumed care of pt from previous shift RN, sinus rhythm on tele HR 80's, VSS, + peripheral pulses, no edema. Lungs diminished, pox 98% on RA. +bs, tolerating PO intake, voids spontaneously. Surgical sites stable. Right IJ cordis w KVO and insulin
infusing. PIV flushes easily. Plan of care reviewed w the pt and questions encouraged.
--- NOTE | 2024-07-11 10:07 | W.DCSUMMARY ---
Discharge Summary
Discharge Data
Date of Admission: 07/09/24
Date of Discharge: 07/11/24
-
Pending Results: No
Hospital Course
Primary care physician: Delbert Benitez
Outpatient software implementation project manager: Bakari Moses
Inpatient consultants: [facility] Cardiology
Procedures:
1. CABG
Primary Diagnosis:
1. single vessel CAD
Secondary Diagnoses:
1. Hx significant epistaxis on Plavix
2. Hypertension
3. Hyperlipidemia
4. Diabetes mellitus (A1C 7.2)
5. Neuropathy
6. Cervical cancer status post total abdominal hysterectomy
7. Left breast cancer status post reconstruction with right TRAM flap
8. Cataracts
9. History of [place]
10. HFrEF/ Ischemic cardiomyopathy (EF of 45%)
HPI: 74-year-old female was electively admitted on 07/09/2024 for CABG due to severe LAD stenosis.
Hospital course: Patient underwent robot-assisted MIDCAB x 1 with ZAMBRANO to LAD by Dr. Kris Cabrera. Patient received no intraoperative blood products and was extubated in the operating room. She returned to CV ICU on Cardene for blood pressure
control. On postoperative day #1, 2 mediastinal chest tubes were removed. Beta-stanislav dose was increased for hypertension and Cardene weaned off. Patient was started on Farxiga as part of GDMT protocol. Plavix was not instituted as patient had
significant epistaxis with Plavix in the past and patient continued on aspirin 81 mg daily per cardiology. Toprol dose was increased to 50 mg daily to improve heart rate and blood pressure control. Lisinopril increased to 10 mg and patient will
transition to Jardiance 25mg daily as outpatient per discussion with cardiology. Patient ambulated in halls without difficulty and is deemed stable for discharge to home. One left lateral thorax stitch remains intact and will be removed by
transitional nurse at the follow-up home visit.
Home medication changes:
Jardiance 25 mg daily for heart failure goal-directed medical therapy per protocol
Toprol XL 25 mg increased to 50 mg daily
Lisinopril 5 mg increased to 10 mg daily
Discharge Plan
-
Patient Disposition: Home (Routine Discharge)
Discharge Diagnosis/Procedures: CAD s/p CABG
Condition: Fair
Diet: Low Cholesterol, Low Sodium and Diabetic, Carb Controlled
Activity: No strenuous activity
Driving Restrictions: Not until seen by your Dr
Bathing Restrictions: OK to Shower
Other Services: Cardiac Rehab
Specialty Instructions: Weigh Daily- Call MD for wt gain/loss 3 lbs overnight/5 lbs in 1 week
Activity Restrictions/Additional Instructions:
ACTIVITY:
-No strenuous activity: no heavy lifting, pushing, pulling anything over 15 pounds for one month
-continue to use stairs as tolerated
DRIVING RESTRICTIONS:
-No driving for one month or until approved by your surgeon
WOUND CARE:
-Shower daily. Use soap & water.
-No lotions, creams or powders on incision area.
DIET:
-continue a low fat/low cholesterol diet.
-IF you are diabetic, continue carb controlled diet.
CARDIAC REHAB:
-Please make appointment to start in 5-6 weeks with your local hospital program. (See Cardiac Rehabilitation Discharge Booklet).
SPECIALTY INSTRUCTIONS:
-Weigh yourself daily. Call your physician for any weight gain/loss of 3 lbs overnight or 5 lbs in one week.
-REPORT any clicking noise or uneven appearance of your sternum to your surgeon immediately.
-If you smoke, you are instructed to quit. The [place] smoking hotline phone number is [phone]
Referrals:
CT Transitional Care Nurse [Outside] (The Cardiothoracic Transitional Care Nurse will call you to set up a visit in 1-2 days.)
[facility]. Cardiac Rehab [Outside] - 08/11/24 1:00 pm
(Cardiac Rehab Orientation appointment is on Sunday August 11, 2024 @ 1:00pm.
The Cardiac Rehab gym is [facility] the first [facility]
Bakari Moses MD [Active] - 08/04/24 1:00 pm
Harry Norman DO [Family Provider] -
Kris Cabrera MD [Active] - 07/28/24 3:00 pm
Prescriptions:
New
Jardiance 25 mg tablet
25 mg PO DAILY Qty: 30 1RF
lisinopril 10 mg tablet
10 mg PO DAILY Qty: 30 1RF
acetaminophen 325 mg Tablet
650 mg PO Q4HPRN PRN (Reason: mild pain,headache,temp >101F ) Qty: 0 0RF
metoprolol succinate 50 mg Tablet Extended Release 24 Hr
50 mg PO DAILY Qty: 30 1RF
gabapentin 100 mg Capsule
100 mg PO TID Qty: 30 0RF
oxycodone 5 mg Tablet
5 mg PO Q4HPRN PRN (Reason: severe pain) Qty: 10 0RF
Continued
vitamin B complex Capsule
1 cap PO DAILY
rosuvastatin 20 mg Tablet
20 mg PO HS
cholecalciferol (vitamin D3) [Vitamin D3] 125 mcg (5,000 unit) Tablet
125 mcg PO DAILY
aspirin 81 mg Capsule
81 mg PO DAILY
Discontinued
aspirin 325 mg Tablet
325 mg PO HS
lisinopril 5 mg Tablet
5 mg PO DAILY
metoprolol succinate 25 mg Tablet Extended Release 24 Hr
25 mg PO DAILY
Discharge Orders:
Discharge Patient (As Directed); Ordered 07/11/24
Ordered By: Kimberly Abreu
Care Plan Goals
Care Plan Goals:
Problem: Readiness for enhanced knowledge related to diagnosis and treatment plan
Goal: Understand your diagnosis and treatment plan needs, including medications if applicable.
Instructions: Know your diagnosis, underlying causes and treatment plan options, including medications if applicable. Consult with your health care team to learn about your diagnosis and treatment plan, including medications if applicable.
Discharge Date and Time
Print Language: GUINEAN
[2024-07-11 10:24] LABS: Glucose - Point of Care 106 mg/dl (70-99)
--- NOTE | 2024-07-11 12:16 | PTCARENOTE ---
Glycemic discontinued. Cordis discontinued as ordered.
[2024-07-11 12:43] LABS: Glucose - Point of Care 85 mg/dl (70-99)
--- NOTE | 2024-07-11 14:11 | PTCARENOTE ---
tele monitor discontinued, pt tolerated shower. IV line removed. Discharge instructions, medication list and follow up appointments reviewed w the pt and her , questions encouraged.
[2024-07-11] MEDS: TYLENOL PO (15:13)
[2024-07-11] MEDS: FERRLECIT IV (15:13)
--- NOTE | 2024-07-11 22:26 | W.PN.CD ---
Today's Communication / Plan
-
extensive discussion with patient/family re: GDMT plans
stable for discharge today
Impression / Plan
-
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
Primary cyber transport systems specialist: Dr. Bakari Moses
CAD s/p MIDCAB (single-vessel bypass ZAMBRANO in situ to LAD)
-EKG sinus rhythm, PVC, non-specific TW abnormality, mildly prolonged qTC,
-Telemetry stable
-Extubated in OR
-chest tubes out today
-home today
Type II WA (04/2024)
-She had epistaxis with DAPT on aspirin 325 mg at home, will discharge on low dose ASA
Ischemic cardiomyopathy (EF 45%)
-GDMT as tolerated in the postoperative setting, increase lisinopril to 10 (Entresto not affordable)
-will start SGLT2i
-cont. metprolol
-Follow daily weight, I/O
HLD
-Most recent LDL 60, fasting lipid panel in a.m.
-Ideally, LDL should be <55
Hypertension, follow postoperatively
Prior CVA
Type 2 diabetes mellitus, HgbA1c 11.6%, now improved to 7.2%
Prior left-sided breast cancer status post mastectomy and TRAM flap reconstruction
Cervical cancer s/p RICK, recurred XRT
Physical Exam
Vital Signs/Labs
Vital Signs
Temp Pulse Resp BP Pulse Ox
36.8 C 82 16 156/77 98
07/11/24 10:30 07/11/24 13:00 07/11/24 10:30 07/11/24 09:53 07/11/24 10:30
07/10/24 07/11/24 07/12/24
06:59 06:59 06:59
Actual Weight 69.8 kg 70.1 kg
07/11/24 02:15
07/11/24 02:15
PT 16.0 Sec (11.4-14.6) H 07/09/24 11:23
INR 1.25 07/09/24 11:23
APTT 32.0 Sec (23.4-35.0) 07/09/24 11:23
Magnesium 2.2 mg/dl (1.6-2.3) 07/11/24 02:15
Triglycerides 65 mg/dl (10-149) 07/10/24 03:16
LDL Cholesterol, Calc 50 mg/dl 07/10/24 03:16
VLDL Cholesterol, Calc 13 mg/dl (0-30) 07/10/24 03:16
HDL Cholesterol 72 mg/dl 07/10/24 03:16
Physical Exam
Constitutional: Comfortable
Cardiovascular: Rhythm & rate is regular
Respiratory: Respiratory effort normal
Neuro/Psych: AO x 3
Data Reviewed
-
Date of Service: July 11, 2024
Medical Decision Making: Reviewed Test Results
Labs: Labs Reviewed by me
== END 2024-07-11 14:45 | disposition home or self-care (01) | DRG 236 ==
LOC: CVICU 04:52
PROVIDERS: Anesthesiology; Nurse Practitioner; ADMITTING PHYSICIAN Thoracic Surgery (Cardiothoracic Vascular Surgery); CONSULT PHYSICIAN Internal Medicine; CONSULT PHYSICIAN Internal Medicine Critical Care Medicine; FAMILY PHYSICIAN Internal Medicine Geriatric Medicine
PROC: 8E0W0CZ Robotic Assisted Procedure of Trunk Region, Open Approach (ICD-10-PCS; 2024-07-09)
PROC: 02100Z9 Bypass Coronary Artery, One Artery from Left Internal Mammary, Open Approach (ICD-10-PCS; 2024-07-09)
PROC: B24BZZ4 Ultrasonography of Heart with Aorta, Transesophageal (ICD-10-PCS; 2024-07-09)
DX: I25.118 Atherosclerotic heart disease of native coronary artery with other forms of angina pectoris (principal); I50.22 Chronic systolic (congestive) heart failure; D62 Acute posthemorrhagic anemia; E87.29 Other acidosis; J98.11 Atelectasis; I11.0 Hypertensive heart disease with heart failure; E78.5 Hyperlipidemia, unspecified; E11.40 Type 2 diabetes mellitus with diabetic neuropathy, unspecified; I25.5 Ischemic cardiomyopathy; I49.3 Ventricular premature depolarization; E86.1 Hypovolemia; E11.65 Type 2 diabetes mellitus with hyperglycemia; I25.2 Old myocardial infarction; Z85.3 Personal history of malignant neoplasm of breast; Z85.41 Personal history of malignant neoplasm of cervix uteri; Z86.73 Personal history of transient ischemic attack (TIA), and cerebral infarction without residual deficits; Z92.3 Personal history of irradiation
CPT/HCPCS: 36415; 71045; 71275; 74174; 80048; 80053; 80061; 81003; 82248; 82330; 82565; 82805; 82947; 82962; 83036; 83735; 84132; 84302; 84520; 85014; 85018; 85025; 85027; 85049; 85610; 85730; 86803; 86850; 86900; 86901; 86920; 87070; 93005; 93312; 93320; 93325; J2916; Q9967

== ENCOUNTER 2024-07-28 15:30 | Emergency (ER) | payer MEDICARE, OTHER, SELFPAY ==
[2024-07-28 15:33] VITALS: BP 115/68
--- NOTE | 2024-07-28 16:19 | ED.MUSCINJ ---
HPI-Injury
General
Chief Complaint: Fall
Source: patient
Time Seen by Provider: 07/28/24 15:44
History of Present Illness-Injury
Initial Injury comments:
74-year-old female presents complaining of right shoulder pain starting 2 days ago. She fell and landed on her right shoulder. Hurts to move her shoulder actively. She did not hit her head. She denies any pain in the neck. No other complaints
at this time
Phy Exam
Physical Exam
Physical Exam:
General: Well-appearing female no acute respiratory distress
HEENT: Normocephalic atraumatic
Heart: Regular rate and rhythm no murmurs
Musculoskeletal exam: Right shoulder is tender without obvious deformity. Decreased range of motion secondary to pain. The cervical spine is nontender.
Extremities: No cyanosis
Injury Course
Orders/Labs/Results
Orders:
Orders
07/28/24 15:36
Shoulder, Right, Trauma [CR Shoulder, Trauma - Right] Urgent
Comment: fell two days ago
Reason For Exam: right shoulder pain
MDM/Problems Addressed
Differential Diagnosis Includes:
right shoulder pain after fall. Consider contusion versus fracture versus strain.
I have visualized x-rays of the right shoulder which demonstrate nondisplaced fracture of the greater tuberosity of the humerus. No dislocation.
Patient placed in a sling. Advised Tylenol for pain. She will be referred to orthopedics for further
*Critical Care Note
Total Time (30-74mins, 75-104mins- exclusive of procedures): Not Applicable
ED Attending Note
-
Portions of this chart may have been created with voice recognition software.� Occasional wrong word or��sound alike� substitutions may have occurred due to the inherent limitations of voice recognition software.
Discharge Plan
Departure
Patient Disposition: Home (Routine Discharge)
Date of Disposition: 07/28/24
Time of Disposition: 16:22
Patient with high blood pressure during this ER visit?: No
Discharge Problem:
Fracture of proximal end of humerus
Instructions: Muscle, joint, and bone pain - Discharge instructions
Prescriptions:
No Action
vitamin B complex Capsule
1 cap PO DAILY
rosuvastatin 20 mg Tablet
20 mg PO HS
cholecalciferol (vitamin D3) [Vitamin D3] 125 mcg (5,000 unit) Tablet
125 mcg PO DAILY
aspirin 81 mg Capsule
81 mg PO DAILY
Jardiance 25 mg tablet
25 mg PO DAILY Qty: 30 1RF
lisinopril 10 mg tablet
10 mg PO DAILY Qty: 30 1RF
acetaminophen 325 mg Tablet
650 mg PO Q4HPRN PRN (Reason: mild pain,headache,temp >101F ) Qty: 0 0RF
metoprolol succinate 50 mg Tablet Extended Release 24 Hr
50 mg PO DAILY Qty: 30 1RF
gabapentin 100 mg Capsule
100 mg PO TID Qty: 30 0RF
oxycodone 5 mg Tablet
5 mg PO Q4HPRN PRN (Reason: severe pain) Qty: 10 0RF
Referrals:
Geoffrey Correa MD [Active] -
Delbert Benitez MD [Family Provider] -
Activity Restrictions/Additional Instructions:
Use sling for support. Continue with Tylenol for pain. Follow-up with orthopedics return if worse
Interventions
Interventions:
*Risk Screen - Suicide Last Done: 07/28/24 15:33
*Neglect/Abuse Screening Last Done: 07/28/24 15:33
Discharge Date and Time
Print Language: LIBERIAN
== END 2024-07-28 16:38 | disposition home or self-care (01) ==
LOC: EMR 15:30
PROVIDERS: EMERGENCY PHYSICIAN Emergency Medicine; FAMILY PHYSICIAN Internal Medicine
DX: S42.254A Nondisplaced fracture of greater tuberosity of right humerus, initial encounter for closed fracture (principal); W19.XXXA Unspecified fall, initial encounter
CPT/HCPCS: 99283; 73030

== ENCOUNTER → 2024-09-12 06:32 | Outpatient (REF) | payer MEDICARE, OTHER, SELFPAY | LOC: MRI 06:32 | PROVIDERS: ATTENDING PHYSICIAN Orthopaedic Surgery; FAMILY PHYSICIAN Internal Medicine | DX: M25.519 Pain in unspecified shoulder (principal); S46.011A Strain of muscle(s) and tendon(s) of the rotator cuff of right shoulder, initial encounter; S42.201D Unspecified fracture of upper end of right humerus, subsequent encounter for fracture with routine healing | CPT/HCPCS: 73221 ==